=== PATIENT | female | born 1935 | race Caucasian/White ===

== ENCOUNTER 2018-12-31 14:39 | Emergency (ER) | payer MEDICARE, SELFPAY ==
[2018-12-31 14:41] VITALS: BP 75/35; PULSE 71; RESP 18; TEMP 36.9; O2SAT 100; BMI 29.5
[2018-12-31 15:25] VITALS: BP 140/67; PULSE 77; RESP 16; O2SAT 100
--- NOTE | 2018-12-31 15:27 | EKG12_ITS ---
Test Reason : DIZZINESS Blood Pressure : / mmHG Vent. Rate : 071 BPM Atrial Rate : 071 BPM P-R Int : 186 ms QRS Dur : 092 ms QT Int : 412 ms P-R-T Axes : 066 056 079 degrees QTc Int : 447 ms Normal sinus rhythm Possible Inferior infarct , age undetermined Abnormal ECG Confirmed by CHELLE HE, YAZMIN ([id number]), assignment editor NERI ANDERSON ([id number]) on 01/02/2019 1:18:19 PM Referred By: [place] Confirmed By:KATARINA CORBETT MD
--- NOTE | 2018-12-31 15:27 | CT_ITS ---
STUDY: CT BRAIN WITHOUT CONTRAST REASON FOR EXAM: Female, 83 years old. Dizziness. Emesis. RADIATION DOSAGE (If Supplied By Facility): CTDIvol = ( 60.81 ) mGy, DLP = ( 2088.55 ) mGycm TECHNIQUE: Transaxial CT imaging of the brain was performed without administration of intravenous contrast material. Individualized dose optimization techniques were used for this CT. COMPARISON: No relevant priors. FINDINGS: Normal soft tissue structures. There is hyperostosis frontalis internus. There is mild cerebral atrophy with widening of the extra-axial spaces and ventricular dilatation. There are areas of decreased attenuation within the white matter tracts of the supratentorial brain, consistent with microvascular disease changes. Normal basal ganglia and thalami. Normal brainstem. Normal cerebellum. There is no intracranial hemorrhage. There are no findings of an acute ischemic infarction. Normal visualized paranasal sinuses. CT/Brain/Head without Contrast IMPRESSION: Chronic involutional changes of the brain. Electronically Signed: Garrison Washington, at 16:00 EDT , Service support ,
[2018-12-31] MEDS: LORazepam 2 MG/ML Syringe 0.5 MG IV (15:34)
[2018-12-31] MEDS: Ondansetron 4 MG/2 ML Vial IV (15:34)
[2018-12-31] MEDS: 0.9% Normal Saline 1,000 ML 1000 ML IV (15:34)
--- NOTE | 2018-12-31 15:49 | ED.VISSUMM ---
- ER Visit Summary Date of Service: 12/31/18 Chief Complaint: Dizziness History of Present Illness: The patient is a 83 F who presents the emergency department with dizziness. She tells me she got up this morning she ate breakfast. Around noon she was coming up stairs and felt that her eyes were spinning. She laid back on the couch with her head against the pillows and felt better. However the dog needed to be let out so she got up with the dog out and the neighbor asked her how she was feeling and she said poorly. She went back and side had nausea vomiting continued to feel that she was dizzy and eventually was brought to the emergency department. She never had this before. She denies any recent illnesses. No change in medications or dosages of her medications. No recent infections. No tinnitus. Physical Examination: Afebrile vital signs are stable (hypotensive reading that was recorded was not present and subsequent readings) Gen: Well-nourished well-developed Head: Normocephalic atraumatic Eyes: Perrl EOMI ENT: TMs clear no rhinorrhea moist mucous membranes Neck: Supple no lymphadenopathy no JVD nontender CVS: Regular rate rhythm no murmurs normal S1-S2 Respiratory: No distress clear to auscultation bilaterally chest nontender Abdomen: Soft nontender nondistended normal bowel sounds no masses Back: Nontender Extremity: Nontender no edema Skin: Normal color no rash Neuro: alert orientated ?3 CN II-XII intact normal strength sensation reflexes positive [place]-Hallpike. When I set the patient up she develops nystagmus to the left when I lay her back and resolves. When I have her turn her head to the left nystagmus returns. These movements exacerbate her symptoms. Psych: Normal affect normal mood Test Results: CT the brain demonstrate no acute findings. Basic labs are essentially negative. Emergency Department Course and Treatment: Patient received IV fluids, Ativan, and Zofran. These were administered IV. Ativan was chosen over Valium because of the patient's nausea and vomiting and the lack of IV Valium. Repeat examination the patient has no further symptoms. Negative [place]-Hallpike. She has no symptoms with ambulation. Patient will be discharged home with instructions to follow-up return if worsening or concerns Impression: 1. Acute vertigo This note was generated with [employer] software. It may contain incorrect words, spelling, and punctuation that were not noted in review of the chart prior to signing ED Disposition - Plan for ED Patient: Disposition: Home or Assisted Living Instructions: Benign Positional Vertigo Prescriptions: Lorazepam [Ativan] 0.5 mg PO TID PRN #10 tab PRN Reason: Vertigo Prescription Printed Ondansetron [Zofran Odt] 4 mg PO Q8H PRN PRN #10 tab PRN Reason: Vomiting Prescription Printed Referrals: Jean Pierre Villanueva MD [Primary Care Provider] - 1 Week
[2018-12-31 15:53] LABS: Absolute Lymphocyte Count 1.68 X10^3/uL (0.83-4.51); Absolute Neutrophil Count 5.4 X10^3/uL (2.0-7.7); Basophil# 0.04 X10^3/uL; Basophil% 0.5 % (0-1); Eosinophil# 0.03 X10^3/uL; Eosinophils% 0.4 % (0-5); Hematocrit 38.2 % (37-47); Hemoglobin 12.6 g/dL (12.0-15.0); Lymphocyte # 1.68 X10^3/ul (4.0); Lymphocyte % 22.4 % (19-41); Mean Corpuscular Hgb 28.8 pg (27.0-32.0); Mean Corpuscular Volume 87.4 fL (81-99); Mean Platelet Vol. 10.2 fl (6.2-12.0); Monocyte# 0.29 X10^3/uL; Monocyte% 3.9 % (0-10); NRBC Flagged by Analyzer 0 % (0-5); Neutrophil # 5.44 X10^3/uL (2.7-7.7); Neutrophil % 72.5 % (47-70); Platelet Count 246 K/mm3 (150-450); RBC Distribution Width CV 12.8 % (11.6-14.6); RBC Distribution Width SD 40.7 fl (35.1-43.9); Red Blood Count 4.37 M/mm3 (4.2-5.4); White Blood Count 7.5 K/mm3 (4.4-11.0)
[2018-12-31 15:58] LABS: ALB/GLOB Ratio 1.1 RATIO (0.9-2.4); AST(SGOT) 23 U/L (15-37); Alanine Aminotransfer ALT/SGPT 30 U/L (13-56); Albumin, Serum 3.8 g/dL (3.2-5.0); Alkaline Phosphatase 91 U/L (45-117); Anion Gap 7 (5-15); BUN 25 mg/dL (7-18); BUN/Creat Ratio 17.4 RATIO (10-20); Calcium,Total 10.2 mg/dL (8.5-10.1); Chloride 105 mmol/L (98-107); Creatinine, Serum 1.44 mg/dL (0.55-1.02); EST Glomerular Filtration Rate 37 mL/min (>60); Est Glom Filt Rate - Afr Amer 45 mL/min (>60); Estimated Creatinine Clearance 24.92 ml/min; Globulin 3.4 g/dL (2.2-4.2); Glucose 134 mg/dL (74-106); Potassium 4.1 mmol/L (3.5-5.1); Protein, Total 7.2 g/dL (6.4-8.2); Sodium Level 137 mmol/L (136-145)
[2018-12-31 16:52] VITALS: BP 154/81; PULSE 82; RESP 16; O2SAT 93
[2018-12-31 17:07] VITALS: RESP 16
== END 2018-12-31 17:07 | disposition home or self-care (01) ==
PROVIDERS: Emergency Provider Emergency Medicine; Family Provider Internal Medicine; PCP Internal Medicine
DX: R42 Dizziness and giddiness (principal)
CPT/HCPCS: 70450; 80053; 85025; 93005; 96361; 96374; 96375; 99285; J7030; A4216; J2405

== ENCOUNTER 2019-01-03 11:51 | Emergency (ER) | payer MEDICARE, SELFPAY ==
[2019-01-03 11:52] VITALS: BP 153/81; PULSE 83; RESP 20; TEMP 36.6; O2SAT 98; BMI 29.5
--- NOTE | 2019-01-03 12:38 | ED.VISSUMM ---
- ER Visit Summary Date of Service: 01/03/19 Chief Complaint: Dizziness History of Present Illness: The patient is a 83 F of hypertension high cholesterol. Patient was seen in the emergency department on 12/31/2018 and had an unremarkable CBC and CT of her brain at that time. BMP showed bilateral renal insufficiency with a creatinine of 1.4. She had room spinning dizziness consistent with vertigo since the morning of 12/31/2018. She was seen in the emergency department. Prescribed Ativan. Her symptoms have since resolved. She did fall today. She denies any complaints. Currently she has no vertigo type symptoms. Daughter states she is also urinating more frequently. Physical Examination: Elderly female no acute distress vital signs stable afebrile initial blood pressure 133/81. H EENT exam unremarkable. Pupils round reactive light. Motions are intact. No facial droop. Normal speech. Neck nontender. Trachea midline. Lungs clear to auscultation bilaterally. Heart regular rate and rhythm no murmur. Chest wall nontender. Abdomen soft and nontender. Normal bowel sounds no peritoneal signs. Extremities moves all 4. 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 Dorsi plantarflexion intact. Neurologically she is awake alert with no focal motor or sensory deficits. Her current NIH score is 0. [place] maneuver was negative. Currently I cannot create nor she having any vertigo type dizziness. He got up out of bed walk to the door and back without any difficulty. Then walked to the restroom without any difficulty to give us a urine sample. Test Results: Urinalysis shows no acute abnormality. No nitrites or white cells. Orthostatic vital signs shows positive. Therefore the patient was treated with a liter normal saline and repeat orthostatic vital signs are being obtained. Emergency Department Course and Treatment: Patient's exam is completely normal. She is a normal vital signs and neurologic exam. Daughter and I discussed further imaging which I do not think are not necessary at this time and she is comfortable with not obtaining a CTA of the head and neck. And understands an MRI would be more of an outpatient work-up. Well after a liter of normal saline. Orthostatic vital signs are now unremarkable. She and her daughter comes with her being discharged home. She will follow-up with primary care physician for further blood pressure evaluation. Treatment Plan: Antivert as needed for vertigo. Follow-up with your doctor to ensure she is improving. Return if worse. Disposition: discharge Impression: Acute vertigo Acute fall Orthostatic hypotension This note was generated with [employer] dictation software. It may contain incorrect words, spelling, and punctuation that were not noted in review of the chart prior to signing ED Disposition - Plan for ED Patient: Disposition: Home or Assisted Living Instructions: Benign Positional Vertigo, HYPOTENSION, Orthostatic Prescriptions: Meclizine HCl [Antivert] 25 mg PO 4X/DAY PRN PRN #14 tab PRN Reason: Vertigo Prescription Printed Referrals: Jean Pierre Villanueva MD [Primary Care Provider] - 3-5 Days Additional Instructions: Plenty fluids. Watch her blood pressure and log it twice daily and show this to your primary care physician when you follow-up with him this week. Antivert as needed for room spinning dizziness if you are not having symptoms do not need to take this for the prior prescription of Lorazepam which is Ativan. If your blood pressure continues to run lower they may need to adjust, change or stop your blood pressure medication.
[2019-01-03 12:45] VITALS: BP 113/70; BP 125/70; BP 140/76; PULSE 84; PULSE 85; PULSE 94
[2019-01-03 12:48] LABS: Mucous, Urine 0 SEEN /hpf (<or=2+); Red Blood Cells-Urine 0 SEEN /hpf (0-5)
[2019-01-03 12:52] LABS: Color, Urine Yellow (Yellow); Glucose, Dipstick Normal (Normal); Ketone-Dipstick Negative (Negative); Leukocyte Esterase-Dipstick 25 /ul (Negative); Nitrite-Dipstick Negative (Negative); Occult Blood-Urine Negative /ul (Negative); Protein-Dipstick Negative (Negative); Specific Gravity, Urine 1.005 (1.002-1.030); Urine Bilirubin Dipstick Negative (Negative); Urine Clarity Clear (Clear); Urine Urobilinogen Normal (Normal)
[2019-01-03 12:57] LABS: Bacteria 1+ /hpf (None Seen); Squamous Epithelial Cells - UA 0-5 SEEN /hpf (5-10); White Blood Cells 0-5 SEEN /hpf (0-5)
[2019-01-03] MEDS: 0.9% Normal Saline 1,000 ML 999 ML IV (13:05)
--- NOTE | 2019-01-03 14:03 | ED.DEP ---
ED Disposition - Plan for ED Patient: Disposition: Home or Assisted Living Instructions: Benign Positional Vertigo, HYPOTENSION, Orthostatic Prescriptions: Meclizine HCl [Antivert] 25 mg PO 4X/DAY PRN PRN #14 tab PRN Reason: Vertigo Prescription Printed Referrals: Jean Pierre Villanueva MD [Primary Care Provider] - 3-5 Days Additional Instructions: Plenty fluids. Watch her blood pressure and log it twice daily and show this to your primary care physician when you follow-up with him this week. Antivert as needed for room spinning dizziness if you are not having symptoms do not need to take this for the prior prescription of Lorazepam which is Ativan. If your blood pressure continues to run lower they may need to adjust, change or stop your blood pressure medication.
[2019-01-03 14:20] VITALS: BP 139/73; BP 147/78; BP 173/73; PULSE 66; PULSE 71; PULSE 78
[2019-01-03 15:12] VITALS: BP 144/76
== END 2019-01-03 15:14 | disposition home or self-care (01) ==
PROVIDERS: Emergency Provider Emergency Medicine; Family Provider Internal Medicine; PCP Internal Medicine
DX: I95.1 Orthostatic hypotension (principal); R42 Dizziness and giddiness; W19.XXXA Unspecified fall, initial encounter
CPT/HCPCS: 81001; 96360; 96361; 99284; J7030; A4216